=== PATIENT | female | born 1990 | race Caucasian/White ===

== ENCOUNTER → 2020-04-26 | Outpatient (CLI) | payer BC ==
[~2020-04-26] MED LIST: IBU600 MG PO; IRON18 MG1; MOTRIN 600600 MG/TAB PO; PERCOCET 325 MG1 TA2 PO; PRENATA1 CTB PO
== END ==
LOC: EDBD → DIA.ED
DX: O24.419 Gestational diabetes mellitus in pregnancy, unspecified control (principal)
CPT/HCPCS: G0108

== ENCOUNTER → 2020-05-17 | Outpatient (CLI) | payer BC | LOC: DIA.ED 09:18 | DX: O24.419 Gestational diabetes mellitus in pregnancy, unspecified control (principal) | CPT/HCPCS: G0108 ==

== ENCOUNTER 2020-06-28 06:52 | Inpatient (IN) | payer BC ==
[~2020-06-28] VITALS: Ht 167.6 cm; Wt 75.0 kg
[2020-06-28] VITALS (56 sets, daily range): BP systolic 88–131; BP diastolic 46–77; PULSE 69–115; TEMP 97.5–98.6
--- NOTE | 2020-06-28 07:00 | NUR ---
0700- 41.2, G6L4 arrives on unit for scheduled IOL/TOLAC. Ambulatory to LDR6 with spouse. Oriented to room. Instructed to change into gown. 0705- EFM explained and applied. Patient denies any LOF, VB, or regular contractions. Reports normal movement. Assessment completed. 0710- IV started in left hand. Routine labs obtained via iv site. Consent forms explained and signed. 0725- FHR Cat I. SVE /-2. BOWI. 0730- Pitocin explained and started at 2mu per orders. 0735- FHR with minimal variability. Patient repositioned wedge right and juice given. 0745- Patient wedge left.
[2020-06-28 08:04] LABS: BASO # 0.1 (0.0-0.2); BASO % 0.5 % (0.0-2.0); EOS # 0.1 (0.0-0.7); EOS % 0.8 % (0-4.0); GRAN # 6.9 (1.4-6.5); GRAN % 66.4 % (42.2-75.2); HEMATOCRIT 30.9 % (37.0-47.0); HEMOGLOBIN 10.3 g/dl (12.5-16.0); LYMPH # 2.4 (1.2-3.4); LYMPH % 23.4 % (20.0-51.0); MEAN CELL VOLUME 84 fl (80.0-100.0); MEAN CORPUSCULAR HEMOGLOBIN 28 pg (27.0-31.0); MEAN CORPUSCULAR HGB CONC 33 g/dl (33.0-37.0); MEAN PLATELET VOLUME 10.4 fl (7.4-10.4); MONO # 0.9 (0.1-0.6); MONO % 8.3 % (1.7-9.3); PLATELET COUNT 223 K/mm3 (130-400); RED BLOOD COUNT 3.66 M/mm3 (4.10-5.30); REDCELL DISTRIBUTION WIDTH-CV 14.1 % (11.5-14.5)
--- NOTE | 2020-06-28 08:27 | NUR ---
0827- Dr. Rosenthal at bedside and reviews POC with patient and family. SVE 2cm per Dr. Rosenthal. AROM at this time for small amount of pink tinged fluid. Ludy care provided and patient wedge left. Orders received to continue with pitocin 2mu every 30min as ctx pattern and FHR indicates.
--- NOTE | 2020-06-28 11:30 | NUR ---
1130- Contractions noted every 1.5-2min. Patient repositioned and LR bolus initiated.
--- NOTE | 2020-06-28 13:07 | NUR ---
Dr. Rosenthal at bedside and reviews plan of care with patient and spouse. Discusses epidural with patient who declines at this time. SVE per Dr. Rosenthal . Updated on FHR with occasional minimal variability. RN to continue to increase pitocin as indicates per Dr. Rosenthal.
--- NOTE | 2020-06-28 15:15 | NUR ---
1515- Intermittent variable and early decels noted. 1530- Intermittent variable and early decels noted.
--- NOTE | 2020-06-28 15:25 | NUR ---
1525- Patient requesting epidural. LR bolus started. No Stewart CRNA notified. Dr. Rosenthal updated on pt. See physician notification. 1532- No Stewart CRNA at bedside for epidural placement. Patient assisted to sit on edge of bed. FHR tracing intermittently due to maternal position. Pitocin paused. 1540- Single shot by No Stewart CRNA. Epidural placed at this time by No Stewart CRNA. 1442- Pitocin resumed at 14mu. Patient repositioned wedge left. Plan of care and safety precautions reviewed. Patient denies any questions or needs at this time. Resting with call light within reach.
--- NOTE | 2020-06-28 16:04 | NUR ---
1604- FHR decel down to 90bmp. Audible, RN at bedside. Patient wedge right. 1609- FHR decel down to 90bmp. Ctx tracing intermittently. Difficult to determine onset. LR bolus started. Pitocin paused. Pt repositione left lateral. Will cont. to monitor. 1615- Blood pressure noted to be 91/50. Ephedrine 10mg given per orders. See emar. RN remains at bedside. FHR baseline 145bmp. Moderate variability. Pitocin resumed at 14mu.
--- NOTE | 2020-06-28 16:30 | NUR ---
1630- Early and variable decels.
--- NOTE | 2020-06-28 17:05 | NUR ---
1705- Patient with early, variable, and late decels. Patient repositioned right and left lateral. LR bolus started. Patient reports increased rectal pressure. SVE 7-8/100/0. Dr. Rosenthal updated. See physician notification. 1710- Patient with increased rectal pressure. SVE 8/100/0.
--- NOTE | 2020-06-28 17:30 | NUR ---
1730- Patient with increased rectal pressure. SVE C/+2. Dr. Rosenthal updated on patient and requested for delivery. Recurrent variable decels with contractions noted down to 70bmp with spontaneous return to baseline. Pitocin discontinued. LR bolus started. Repostioned wedge left and right. 1731- Gan catheter removed. Patient coached through contractions. 1739- Dr. Rosenthal at bedside for delivery. Patient assisted to into footplates. Instructed on pushing with contractions. 1743- Patient begins pushing with contractions with Dr. Rosenthal and RN at bedside. Spontaneous vaginal delivery of viable male at this time. Nuchal cord x1 reduced on the perinium. [place] nares and mouth bulb suctioned by Dr. Rosenthal. Cord clamped x2 and cut by father of . to mothers chest where dried and stimulated by nursery RN. Care of assumed by Cuate Martinez RN. Pitocin paused. 1750- Spontaneous delivery of placenta. Pitocin resumed at 333ml/hr per orders. 1 degree perineal laceration repaired by Dr. Rosenthal. 1800- Ludy care provided and patient repositioned in bed. Fundus firm, midline, and bleeding minimal. Plan of care and safety precautions reviewed with patient who verbalizes understanding. Denies questions or needs at this time.
[2020-06-29 01:30] VITALS: BP 96/44; PULSE 86; TEMP 97.5
--- NOTE | 2020-06-29 01:30 | NUR ---
Assumed care at this time. Up to restroom. VS obtained. INT dc'd per physician order;tolerated well.
[2020-06-29 05:40] VITALS: BP 106/52; PULSE 79; TEMP 97.9
[2020-06-29 08:47] VITALS: BP 111/65; PULSE 87; TEMP 98.4
[2020-06-29] MEDS ORDERED: IBU600 MG PO (09:20)
--- NOTE | 2020-06-29 09:40 | NUR ---
Initial visit; Parents thanked [employer] for offering congratulations and God's blessings for the of their son. Pres[employer] thanked family for choosing [facility].
[2020-06-29 13:10] VITALS: BP 108/59; PULSE 78; TEMP 97.8
[2020-06-29 17:43] VITALS: BP 108/63; PULSE 82; TEMP 97.8
[2020-06-29 19:30] VITALS: BP 109/57; PULSE 79; TEMP 97.9
--- NOTE | 2020-06-29 19:45 | NUR ---
Discharge instructions reviewed with patient and spouse. Baby placed in infant carseat and straps checked. Mom and baby walked to POV and discharged home in stable condition.
== END 2020-06-29 19:45 | disposition home or self-care (01) | DRG 807 ==
LOC: LDR 06:52 → OB 12:36
PROVIDERS: ADMIT Obstetrics & Gynecology
PROC: 10E0XZZ Delivery of Products of Conception, External Approach (ICD-10-PCS; principal; 2020-06-28)
PROC: 10907ZC Drainage of Amniotic Fluid, Therapeutic from Products of Conception, Via Natural or Artificial Opening (ICD-10-PCS; 2020-06-28)
PROC: 0HQ9XZZ Repair Perineum Skin, External Approach (ICD-10-PCS; 2020-06-28)
DX: O48.0 Post-term pregnancy (principal); Z37.0 Single live birth; O24.420 Gestational diabetes mellitus in childbirth, diet controlled; O99.02 Anemia complicating childbirth; D64.9 Anemia, unspecified; O70.0 First degree perineal laceration during delivery; O34.211 Maternal care for low transverse scar from previous cesarean delivery; Z3A.41 41 weeks gestation of pregnancy
CPT/HCPCS: J2590; J2795; J7120

== ENCOUNTER → 2022-06-12 | Outpatient (CLI) | payer BC | LOC: DIA.ED 09:30 | DX: O24.419 Gestational diabetes mellitus in pregnancy, unspecified control (principal) | CPT/HCPCS: G0108 ==

== ENCOUNTER 2022-11-15 10:41 | Inpatient (IN) | payer BC ==
[~2022-11-15] VITALS: Ht 167.6 cm; Wt 73.6 kg
[2022-11-22] VITALS (35 sets, daily range): BP systolic 101–124; BP diastolic 52–82; PULSE 66–96; TEMP 97.9–98.2
[2022-11-22] MEDS ORDERED: NATURAL IRON65 MG (06:41)
--- NOTE | 2022-11-22 06:45 | NUR ---
PT AMBULATORY TO UNIT FOR SCHEDULED IOL, DX:POST DATES. PT DENIES LOF, REPORTS POSITIVE MOVEMENT, AND REPORTS INTERMITTENT CONTRACTIONS BEGINNING THIS MORNING, NOTHING REGULAR YET. CATEGORY 1 EFM TRACING UPON INITIAL PLACEMENT OF EFM/TOCO. WILL CONTINUE WITH IOL POC PER PROTOCOL.
[2022-11-22 07:25] LABS: BASO % 0.4 % (0.0-2.0); EOS # 0.1 K/mm3 (0.0-0.7); GRAN # 6.8 K/mm3 (1.4-6.5); GRAN % 68.3 % (42.2-75.2); HEMOGLOBIN 10.2 g/dl (12.5-16.0); LYMPH # 2.2 K/mm3 (1.2-3.4); LYMPH % 21.8 % (20.0-51.0); MEAN CELL VOLUME 88 fl (80.0-100.0); MEAN CORPUSCULAR HEMOGLOBIN 29 pg (27-31); MEAN CORPUSCULAR HGB CONC 33 g/dl (33.0-37.0); MEAN PLATELET VOLUME 9.7 fl (7.4-10.4); MONO # 0.8 K/mm3 (0.1-0.6); MONO % 7.9 % (1.7-9.3); PLATELET COUNT 206 K/mm3 (130-400); RED BLOOD COUNT 3.48 M/mm3 (4.10-5.30); REDCELL DISTRIBUTION WIDTH-CV 13.8 % (11.5-14.5)
[2022-11-22 07:27] LABS: HEMATOCRIT 30.6 % (37.0-47.0)
--- NOTE | 2022-11-22 08:14 | NUR ---
AT BEDSIDE. SVE /-2. AROM WITH CLEAR FLUID @ 0814. PT TOLERATED PROCEDURE WELL. CATEGORY 1 EFM TRACING FOLLOWING AROM. MATERNAL VITAL SIGNS STABLE, PT AFEBRILE AT THIS TIME.
--- NOTE | 2022-11-22 11:07 | NUR ---
PT TO SITTING POSITION ON EDGE OF BED FOR EPIDURAL PLACEMENT. RASHMI CARRANZA CRNA AT BEDSIDE DISCUSSING RISKS OF EPIDURAL, PT AGREEABLE TO MOVE FORWARD WITH PLACEMENT. CATEGORY 1 EFM TRACING. MATERNAL VITAL SIGNS STABLE. DIFFICUTLY TRACING EFM/TOCO DUE TO MATERNAL POSITION. 1107: TEST DOSE PER RASHMI CARRANZA CRNA.
--- NOTE | 2022-11-22 12:50 | NUR ---
1250: CALL TO . PITOCIN OFF AGAIN. (SEE PRIOR PHYS NOTIFICATIONS). PT PLACED IN KNEE CHEST FOLLOWING PROLONGED DECEL INTO THE 60'S/70'S. RECOVERING AT THIS TIME. LR BOLUS INFUSING. MATERNAL VITAL SIGNS STABLE. SVE 8/-1. ARRIVES TO UNIT AT THIS TIME WHILE ON THE PHONE. 1305: SVE /-1. PT PLACED IN LEFT LATERAL POSITION USING STIRRUP. 1312: AT BEDSIDE. SVE REMAINS UNCHANGED. /-1. PT REMAINS IN LEFT LATERAL POSITION IN STIRRUP. PER VORB , PITOCIN STARTED BACK ON AT 5MU. 1325: PT REPORTS INCREASED PRESSURE AND URGE TO PUSH. SVE COMPLETE/+1. TO BEDSIDE. ALL APPROPRIATE STAFF NOTIFIED. ROOM PREPARED FOR DELIVERY. 1331: OF VIABLE FEMALE INFANT AT THIS TIME. INFANT PLACED ON MATERNAL ABDOMEN. CORD CLAMPED X2 AND CUT BY FOB. CARE OF ASSUMED BY DEANA KEE. STRONG CRY NOTED AT DELIVERY. MATERNAL VITAL SIGNS AND LOCHIA STABLE. 1336: OF PLACENTA AT THIS TIME. PITOCIN BOLUS INFUSING PER PROTOCOL. REPAIRS MINOR 1ST DEGREE LACERATION. FUNDUS FIRM AT UMBILICUS. LOCHIA SCANT. QBL:100 FOR DELIVERY. WILL CONTINUE WITH PP CARES PER PLAN OF CARE.
--- NOTE | 2022-11-22 16:10 | NUR ---
PT TO SITTING POSITION FOR PREPARE FOR TRANSFER TO PP ROOM. DENIES DIZZINESS. VITAL SIGNS STABLE. LOCHIA SCANT. FUNDUS REMAINS FIRM WITH MASSAGE. PT REPORTS HEAVINESS TO LOWER PART OF RIGHT LEG. EPIDURAL REMOVED, NO COMPLICATIONS NOTED. GWEN BRICEÑO USED TO ASSIST PT TO RESTROOM. TOLERATES ACTIVITY WELL, DENIES DIZINESS OR FAINT FEELING. LOCHIA REMAINS SCANT. NO VOID AT THIS TIME. PT DENIES URGE. WILL CONTINUE TO MONITOR. NEW GOWN, UNDERWEAR, PAD, ICE PACK AND AMBREEN CARE ALL PROVIDED. PT TO ROOM 208 IN STABLE CONDITION. ALL BELONGINGS ACCOUNTED FOR.
[2022-11-23 00:30] VITALS: BP 108/59; PULSE 90; TEMP 98.4
[2022-11-23 05:00] VITALS: BP 115/69; PULSE 84; TEMP 98.1
[2022-11-23 08:00] VITALS: BP 109/55; PULSE 85; TEMP 97.6
--- NOTE | 2022-11-23 09:07 | NUR ---
Initial visit; Parents thanked [employer] for looking in on them and offering congratulations and God's blessings for the of their daughter. [employer] thanked family for choosing our hospital.
--- NOTE | 2022-11-23 15:00 | NUR ---
DISCHARGE EDUCATION COMPLETED BY JACK HUGGINS RN
== END 2022-11-23 15:10 | disposition home or self-care (01) | DRG 807 ==
LOC: LDR 11-22 06:20 → OB 11-22 07:30
PROVIDERS: ADMIT Obstetrics & Gynecology
PROC: 10E0XZZ Delivery of Products of Conception, External Approach (ICD-10-PCS; principal; 2022-11-22)
PROC: 0HQ9XZZ Repair Perineum Skin, External Approach (ICD-10-PCS; 2022-11-22)
DX: O34.219 Maternal care for unspecified type scar from previous cesarean delivery (principal); Z37.0 Single live birth; O48.0 Post-term pregnancy; Z3A.40 40 weeks gestation of pregnancy; O24.420 Gestational diabetes mellitus in childbirth, diet controlled; O99.02 Anemia complicating childbirth; D64.9 Anemia, unspecified; O76 Abnormality in fetal heart rate and rhythm complicating labor and delivery; O70.9 Perineal laceration during delivery, unspecified
CPT/HCPCS: J2590; J7120

== ENCOUNTER → 2024-06-02 | Outpatient (CLI) | payer BC ==
[~2024-06-02] MED LIST changes: +NATURAL IRON65 MG
== END ==
LOC: DIA.ED 08:27
DX: O24.419 Gestational diabetes mellitus in pregnancy, unspecified control (principal)
CPT/HCPCS: G0108

== ENCOUNTER → 2024-06-23 | Outpatient (CLI) | payer BC | LOC: DIA.ED 08:45 | DX: O24.419 Gestational diabetes mellitus in pregnancy, unspecified control (principal) ==